=== PATIENT | female | born 1995 | race African-American/Black ===

== ENCOUNTER → 2017-01-01 | Outpatient (CLI) | payer BC ==
[~2017-01-01] MED LIST: CELEXA10 MG PO; XULANE PATCH1 EACH TD
--- NOTE | ~2017-01-01 | US116 ---
[facility] A Service of [facility] RADIOLOGY TEXT RESULTS PATIENT: FIONA ORDONEZ LOCATION: [facility] : [birth year] UNIT #: [id number] AGE: [address]: BOB PFEIFFER MD SEX: F ORDER DR: [id number] [facility] [address] [place], [place] [address] [id number] O MR#: [id number] Acc #: [id number] NAME: FIONA ORDONEZ : 1995 SEX: F STUDY DATE/TIME: 01/01/2017 15:36 UNIT: [facility] ROOM: STUDY DESCRIPTION: US Soft Tissue Head/Neck Attending Physician: Bob Pfeiffer M.D. Ordering Physician: Bob Pfeiffer M.D. Primary Care Physician: Bob Pfeiffer M.D. MEDICAL IMAGING REPORT This report is preliminary unless electronic signature is present EXAM Neck soft tissue ultrasound 01/01/2017 HISTORY Physician's order states lymphadenitis. Patient states right posterior neck swelling behind the ear for 1 month. COMPARISON None. FINDINGS Target sonographic imaging was performed at the site of patient's palpable complaint, behind the right ear. An enlarged lymph node is seen at this location measuring 2 x 0.8 x 1.2 cm. The cortex appears thickened, the jack-sinus fat appears somewhat thinner, diminished. No additional abnormalities identified. IMPRESSION Abnormally thickened and enlarged lymph node measuring up to 2 x 0.8 x 1.1 cm, located the site of patient's palpable complaint by the right ear. Both benign and malignant etiologies in the differential. It would be amenable to ultrasound-guided fine needle aspiration if desired. Dictated by... Ariana Hawkins M.D. THIS IS AN ELECTRONICALLY VERIFIED REPORT Ariana Hawkins M.D. at 01/05/2017 8:40 AM ABDIFATAH/frances [facility] A Service of [facility] RADIOLOGY TEXT RESULTS PATIENT: FIONA ORDONEZ LOCATION: [facility] #: [id number] : [birth year] UNIT #: [id number] AGE: [address]: BOB PFEIFFER MD SEX: F ORDER DR: TD: 01/01/2017 20:15 JOB #: [id number] MEDICAL IMAGING REPORT Page 1 of 1 COPY
== END | disposition home or self-care (01) ==
LOC: CGUS 12-28 13:30
DX: I88.9 Nonspecific lymphadenitis, unspecified (principal)
CPT/HCPCS: 76536

== ENCOUNTER → 2017-02-26 | Outpatient (CLI) | payer BC ==
--- NOTE | ~2017-02-26 | XA230 ---
[facility] A Service of [facility] RADIOLOGY TEXT RESULTS PATIENT: FIONA ORDONEZ LOCATION: [facility] : [birth year] UNIT #: [id number] AGE: [address]: BOB PFEIFFER MD SEX: F ORDER DR: [id number] [address] [place], [place] [address] [id number] O MR#: [id number] Acc #: [id number] NAME: FIONA ORDONEZ : 1995 SEX: F STUDY DATE/TIME: 02/26/2017 9:59 UNIT: [facility] ROOM: STUDY DESCRIPTION: XA FNA Attending Physician: Bob Pfeiffer M.D. Referring Physician: Bob Pfeiffer M.D. Ordering Physician: Bob Pfeiffer M.D. Primary Care Physician: Bob Pfeiffer M.D. MEDICAL IMAGING REPORT This report is preliminary unless electronic signature is present EXAM Ultrasound-guided fine-needle aspiration of a lymph node posterior to the right ear INDICATIONS 22-year-old female with history of enlarged lymph node behind her right ear, however has been decreasing in size, she states. The risks, benefits, and alternatives of the procedure were discussed with the patient and informed consent was obtained. In the procedure room, a time out was performed confirming correct patient and procedure. All elements of maximum sterile-barrier technique utilized according to guidelines appropriate for the procedure. FINDINGS Ultrasound of the palpable area behind the right ear demonstrated a small lymph node without suspicious features. Overlying skin was prepped and draped usual sterile fashion. 1% lidocaine utilized to anesthetize skin and underlying subcutaneous tissues. Next under ultrasound guidance, 3 passes were made into the lymph node with 25-gauge needles and samples sent pathology. The patient tolerated the procedure well without immediate complications. IMPRESSION Technically successful ultrasound-guided fine-needle aspiration of a small lymph node posterior to the right ear. Dictated by... Lee Pace M.D. [facility] A Service of [facility] RADIOLOGY TEXT RESULTS PATIENT: FIONA ORDONEZ LOCATION: [facility] : [birth year] UNIT #: [id number] AGE: [address]: BOB PFEIFFER MD SEX: F ORDER DR: THIS IS AN ELECTRONICALLY VERIFIED REPORT Lee Pace M.D. at 03/01/2017 7:26 AM ARS/frances TD: 02/26/2017 22:34 JOB #: [id number] MEDICAL IMAGING REPORT Page 1 of 1 COPY
== END | disposition home or self-care (01) ==
LOC: CIVR 09:36
PROC: 07B Lymphatic and Hemic Systems, Excision (ICD-10-PCS; principal; 2017-02-26)
DX: I89.9 Noninfective disorder of lymphatic vessels and lymph nodes, unspecified (principal)
CPT/HCPCS: 76942; 88173